=== PATIENT | male | born 1980 | race Caucasian/White ===

== ENCOUNTER 2024-01-26 16:28 | Inpatient (IN) | payer MEDICAID, OTHER ==
[~2024-01-26] VITALS: Ht 162.6 cm; Wt 71.7 kg
[2024-01-26] VITALS (7 sets, daily range): BP systolic 102–150; BP diastolic 61–87; TEMP 98; O2SAT 99–100
[2024-01-26] MEDS ORDERED: CALCIUM CHLORIDE 1,000 MG/10 ML DISP.SYRIN ONE (16:42)
[2024-01-26] MEDS: CALCIUM CHLORIDE 1,000 MG/10 ML DISP.SYRIN IV ONE (16:45)
[2024-01-26 16:52] LABS: BASOPHILS # (AUTO) 0.1 K/uL (0.0-0.2); BASOPHILS % (AUTO) 1.2 % (0.0-2.0); EOSINOPHILS # (AUTO) 0.1 K/uL (0.0-0.7); EOSINOPHILS % (AUTO) 1.2 % (0.0-6.0); HEMATOCRIT 37 % (39-51); HEMOGLOBIN 12.4 g/dL (13.5-17.5); LYMPHOCYTES # (AUTO) 1.5 K/uL (0.8-4.8); LYMPHOCYTES % (AUTO) 16.9 % (20.0-44.0); MEAN CORPUSCULAR HEMOGLOBIN 31 PG (26.0-33.0); MEAN CORPUSCULAR HGB CONC 33 g/dl (31.0-36.0); MEAN CORPUSCULAR VOLUME 92 fL (80-96); MONOCYTES % (AUTO) 11.4 % (2.0-12.0); NEUTROPHILS # (AUTO) 6.3 K/uL (1.8-8.9); NEUTROPHILS % (AUTO) 69.3 % (43.0-81.0); PLATELET COUNT (AUTO) 174 K/uL (150-450); RED BLOOD CELL COUNT(AUTO) 4.05 MIL/uL (4.5-6.0); RED CELL DISTRIBUTION WIDTH 17.9 % (11.5-15.0); WHITE BLOOD COUNT (AUTO) 9.1 K/uL (4.3-11.0)
[2024-01-26 17:09] LABS: SITE, VBG VBG - N/A; VBG BASE EXCESS -3.2 mmol/L (-2.0-3.0); VBG COHb 0.1 % (0.5-1.5); VBG HCO3 18.1 mmol/L (22.0-29.0); VBG MetHb 0.3 % (0.5-1.5); VBG OXYGEN SATURATION 70.3 % (60.0-85.0); VBG PCO2 23.4 mmHg (38.0-54.0); VBG PH 7.506 (7.320-7.430); VBG PO2 35.6 mmHg (23.0-48.0); VBG TOTAL HEMOGLOBIN 13.1 G/dL (13.5-17.5)
[2024-01-26] MEDS ORDERED: SODIUM BICARBONATE SYR 50 MEQ/50 ML DISP.SYRIN ONE (17:10)
[2024-01-26 17:12] LABS: ALANINE AMINOTRANSFERASE 31 U/L (12-78); ALKALINE PHOSPHATASE 92 U/L (46-116); ASPARTATE AMINOTRANSFERASE 13 U/L (15-37); BILIRUBIN,DIRECT 0.1 mg/dL (0.0-0.2); BILIRUBIN,TOTAL 0.4 mg/dL (0.2-1.0); CALCIUM, SERUM 7.5 mg/dL (8.5-10.1); CARBON DIOXIDE 23 mmol/L (21-32); CHLORIDE 99 mmol/L (98-107); GLUCOSE 134 mg/dL (74-106); NT-PRO BNP 9002 pg/mL (0-125); SODIUM SERUM 134 mmol/L (136-145); TOTAL PROTEIN, SERUM 7.4 g/dL (6.4-8.2); UREA NITROGEN, BLOOD 76 mg/dL (7-18)
[2024-01-26 17:15] LABS: CREATININE 12.3 mg/dL (0.6-1.3); POTASSIUM 8.7 mmol/L (3.5-5.1)
[2024-01-26] MEDS ORDERED: ALBUTEROL FS 2.5 MG/3 ML VIAL.NEB ONE (17:15)
[2024-01-26] MEDS: SODIUM BICARBONATE SYR 50 MEQ/50 ML DISP.SYRIN IV ONE (17:17)
[2024-01-26] MEDS: ALBUTEROL FS 2.5 MG/3 ML VIAL.NEB NEB ONE (17:19)
[2024-01-26] MEDS ORDERED: DEXTROSE 50%-WATER 50 ML DISP.SYRIN ONE (17:29)
[2024-01-26] MEDS ORDERED: SODIUM ZIRCONIUM CYCLOSILICATE 10 GM POWD.PACK ONE (17:29)
[2024-01-26] MEDS ORDERED: INSULIN REGULAR, HUMAN 100 UNIT/ML 10 ML VIAL ONE (17:30)
[2024-01-26 17:38] LABS: MAGNESIUM 2.6 mg/dL (1.8-2.4); PHOSPHORUS 6.6 mg/dL (2.5-4.9)
[2024-01-26] MEDS: INSULIN REGULAR, HUMAN 100 UNIT/ML 10 ML VIAL IV ONE (17:40)
[2024-01-26] MEDS: DEXTROSE 50%-WATER 50 ML DISP.SYRIN IV ONE (17:40)
[2024-01-26] MEDS: SODIUM ZIRCONIUM CYCLOSILICATE 10 GM POWD.PACK PO ONE (17:41)
[2024-01-26] MEDS ORDERED: FUROSEMIDE 20 MG/2 ML VIAL ONE (18:00)
[2024-01-26] MEDS: FUROSEMIDE 40 MG/4 ML VIAL IV ONE (18:00)
[2024-01-26] MEDS ORDERED: Z GUARD REMEDY 4 OZ OINT TP PRN (20:00)
[2024-01-26] MEDS ORDERED: ONDANSETRON HCL/PF 4 MG/2 ML VIAL IVP PRN (20:00)
[2024-01-27] VITALS (12 sets, daily range): BP systolic 103–163; BP diastolic 59–94; TEMP 98–98.2; O2SAT 96–100
[2024-01-27 05:02] LABS: EOSINOPHILS # (AUTO) 0.1 K/uL (0.0-0.7); HEMATOCRIT 33 % (39-51); HEMOGLOBIN 11.6 g/dL (13.5-17.5); LYMPHOCYTES # (AUTO) 1.2 K/uL (0.8-4.8); LYMPHOCYTES % (AUTO) 23.4 % (20.0-44.0); MEAN CORPUSCULAR HEMOGLOBIN 31 PG (26.0-33.0); MEAN CORPUSCULAR HGB CONC 35 g/dl (31.0-36.0); MEAN CORPUSCULAR VOLUME 89 fL (80-96); MONOCYTES # (AUTO) 0.5 K/uL (0.1-1.30); MONOCYTES % (AUTO) 10.3 % (2.0-12.0); NEUTROPHILS # (AUTO) 3.3 K/uL (1.8-8.9); NEUTROPHILS % (AUTO) 63.3 % (43.0-81.0); PLATELET COUNT (AUTO) 146 K/uL (150-450); RED BLOOD CELL COUNT(AUTO) 3.71 MIL/uL (4.5-6.0); RED CELL DISTRIBUTION WIDTH 17.5 % (11.5-15.0); WHITE BLOOD COUNT (AUTO) 5.2 K/uL (4.3-11.0)
[2024-01-27 05:39] LABS: ALANINE AMINOTRANSFERASE 30 U/L (12-78); ALBUMIN 3.4 g/dL (3.4-5.0); ALKALINE PHOSPHATASE 91 U/L (46-116); ASPARTATE AMINOTRANSFERASE 15 U/L (15-37); BILIRUBIN,DIRECT 0.1 mg/dL (0.0-0.2); BILIRUBIN,TOTAL 0.5 mg/dL (0.2-1.0); CARBON DIOXIDE 36 mmol/L (21-32); CHLORIDE 101 mmol/L (98-107); CREATININE 6.6 mg/dL (0.6-1.3); GLUCOSE 62 mg/dL (74-106); MAGNESIUM 2.1 mg/dL (1.8-2.4); PHOSPHORUS 6.3 mg/dL (2.5-4.9); POTASSIUM 4.7 mmol/L (3.5-5.1); SODIUM SERUM 142 mmol/L (136-145); TOTAL PROTEIN, SERUM 6.9 g/dL (6.4-8.2); UREA NITROGEN, BLOOD 29 mg/dL (7-18)
[2024-01-27 06:36] LABS: CHOLESTEROL 183 mg/dL (<200); HDL CHOLESTEROL 42 mg/dL (40-60); LDL 111 mg/dL (0-99); TRIGLYCERIDES 121 mg/dL (30-150)
[2024-01-27] MEDS: ACETAMINOPHEN 325 MG TABLET PO PRN (06:54)
[2024-01-27] MEDS: PANTOPRAZOLE 40 MG TABLET.DR PO SCH (10:21)
[2024-01-28 06:07] LABS: HEPATITIS B SURFACE AB Reactive (.)
== END 2024-01-27 12:55 | disposition home or self-care (01) | DRG 425 ==
LOC: ER 16:30 → ICU 18:57 → TELE1 01-27 10:56
PROVIDERS: ADMIT Nurse Practitioner Family; ATTEND Nurse Practitioner Family
PROC: 5A1D70Z Performance of Urinary Filtration, Intermittent, Less than 6 Hours Per Day (ICD-10-PCS; principal; 2024-01-26)
DX: E87.5 Hyperkalemia (principal); I12.0 Hypertensive chronic kidney disease with stage 5 chronic kidney disease or end stage renal disease; D63.1 Anemia in chronic kidney disease; E11.22 Type 2 diabetes mellitus with diabetic chronic kidney disease; E83.51 Hypocalcemia; E83.41 Hypermagnesemia; E83.39 Other disorders of phosphorus metabolism; N18.6 End stage renal disease; Z91.119 Patient's noncompliance with dietary regimen due to unspecified reason; Z99.2 Dependence on renal dialysis; M89.8X9 Other specified disorders of bone, unspecified site; E66.9 Obesity, unspecified; E87.1 Hypo-osmolality and hyponatremia; R79.89 Other specified abnormal findings of blood chemistry
CPT/HCPCS: 36415; 71045-TC; 80048-TC; 80061-TC; 80076-TC; 82803-TC; 82962-TC; 83735-TC; 83880; 84100-TC; 84443-TC; 84484-TC; 85025-TC; 86706; 87081-TC; 87340; 90935-TC; 94799-TC; G0378; J1815; J1940; J3490; J7030